=== PATIENT | female | born 1960 | race American Indian/Alaskan Native ===

== ENCOUNTER 2022-05-12 09:22 | Emergency (ER) | payer MEDICARE, OTHER ==
[~2022-05-12] VITALS: Ht 170.2 cm; Wt 122.5 kg
[2022-05-12] MEDS ORDERED: K-TAB ER20 MEQ PO (10:05)
[2022-05-12] MEDS ORDERED: LANTUS100 UNITS/ SUB-Q (10:06)
[2022-05-12] MEDS ORDERED: XIFAXAN550 MG PO (10:07)
[2022-05-12] MEDS ORDERED: CONSTULOSE10 GM/15 M PO (10:08)
[2022-05-12] MEDS ORDERED: MAGNESIUM-VIT1 EAC1 PO (10:08)
[2022-05-12] MEDS ORDERED: VITAMIN D3125 MC2 PO (10:09)
[2022-05-12] MEDS ORDERED: LIPITOR10 MG PO (10:10)
[2022-05-12] MEDS ORDERED: PANTOPRAZOLE SO40 M2 PO (10:10)
[2022-05-12] MEDS ORDERED: FUROSEMIDE20 MG PO (10:11)
[2022-05-12] MEDS ORDERED: ALLOPURINOL300 MG PO (10:11)
[2022-05-12] MEDS ORDERED: COREG3.125 MG PO (10:12)
[2022-05-12] MEDS ORDERED: GABAPENTIN300 MG PO (10:12)
[2022-05-12] MEDS ORDERED: SEROQUEL50 MG PO (10:13)
[2022-05-12] MEDS ORDERED: ALDACTAZIDE 251 EACH PO (10:14)
== END 2022-05-12 16:45 | disposition home or self-care (01) ==
LOC: ED 09:22
DX: K72.10 Chronic hepatic failure without coma (principal); D64.9 Anemia, unspecified; Z79.4 Long term (current) use of insulin; Z79.899 Other long term (current) drug therapy
CPT/HCPCS: 36415; 36556; 82140; 86850; 86900; 86901; 86922; 99284-25; P9016